=== PATIENT | female | born 1965 | race Caucasian/White ===

== ENCOUNTER 2016-05-29 08:48 | Day surgery (SDC) | payer BC, OTHER ==
[~2016-05-29 08:48] MED LIST: Bupivacaine 0.5% 10 ML SDV INJECT ONE; Lactated Ringers 1,000 ML IV SCH; Lidocaine 1% 30 ML SDV INJECT ONE; Sodium Chloride 0.9% 10 ML Syringe FLUSH PRN; ceFAZolin 1 GM in Premix Bag 1 BAG IV ONE
[2016-05-29] MEDS ORDERED: Lidocaine 1% 30 ML SDV ONE (10:58)
[2016-05-29] MEDS ORDERED: Bupivacaine 0.5% 10 ML SDV ONE (10:59)
[2016-05-29] MEDS ORDERED: Midazolam 1 MG/ML 2 ML SDV ONE (11:07)
[2016-05-29] MEDS ORDERED: fentaNYL 100 MCG/2 ML SDV ONE (11:08)
[2016-05-29] MEDS ORDERED: Ondansetron 4 MG/2 ML SDV ONE (11:08)
[2016-05-29] MEDS ORDERED: Dexamethasone 4 MG/ML SDV ONE (11:08)
[2016-05-29] MEDS ORDERED: Propofol 200 MG/20 ML SDV ONE (11:08)
[2016-05-29] MEDS ORDERED: Lidocaine 1% 30 ML SDV INJECT ONE ×3 (11:36→13:41)
[2016-05-29] MEDS ORDERED: Bupivacaine 0.5% 10 ML SDV INJECT ONE ×3 (11:36→13:41)
[2016-05-29] MEDS ORDERED: HYDROmorphone 1 MG/ML Syringe ONE ×3 (13:20→13:23)
[2016-05-29] MEDS ORDERED: Acetaminophen/oxyCODONE 325-5 MG Tab PO PRN (15:06)
--- NOTE | 2016-05-29 15:11 | PCM.OPNOTE ---
- General Post-Op/Procedure Note Date of Surgery/Procedure: 05/29/16 Operative Procedure(s): Right lateral ankle stabilization procedure/brostrom- hdz, right 2nd and 3rd digit hammertoe correction/proximal interaphalangeal joint arthrodesis with extensor tendon lengthening. Pre Op Diagnosis: Right ankle instabiltiy, hammertoes 2 and 3 Post-Op Diagnosis: dexter Anesthesia Technique: General LMA Primary Surgeon: Elicia Scott Anesthesia Provider: Jorge Alberto Lopez EBL in mLs: 5 Complications: none Condition: Good Free Text/Narrative:: Intake & Output 05/29/16 05/29/16 05/29/16 06:59 14:59 22:59 Intake Total 50 Balance 50 Pt tolerated procedure well and was transported to pacu with vss and vascular status intact to E. TT 116 mins. Danis bone anchor to distal fibula, 0.062 k wires to toes 2 and 3. Well padded L&U splint with foot in slight eversion.
[2016-05-29] MEDS ORDERED: HYDROmorphone 1 MG/ML Syringe IV ONE (15:51)
[2016-05-29] MEDS ORDERED: Ketorolac 30 MG/ML SDV IVPUSH ONE (15:51)
[2016-05-29] MEDS ORDERED: Ondansetron 4 MG/2 ML SDV IV ONE (15:51)
[2016-05-29] MEDS ORDERED: Dexamethasone 4 MG/ML SDV IV ONE (15:51)
[2016-05-29] MEDS ORDERED: Propofol 200 MG/20 ML SDV IV ONE (15:51)
[2016-05-29] MEDS ORDERED: Midazolam 1 MG/ML 2 ML SDV IV ONE (15:51)
[2016-05-29] MEDS ORDERED: fentaNYL 100 MCG/2 ML SDV IV ONE (15:51)
[2016-05-29] MEDS ORDERED: Glycopyrrolate 0.2 MG/ML 2 ML SDV IM ONE (15:51)
[2016-05-29 16:14] VITALS: BP 132/75
--- NOTE | 2016-05-29 22:33 | OR ---
DATE: 05/29/2016 PREOPERATIVE DIAGNOSES: 1. Chronic lateral ankle instability, right ankle. 2. Painful hammertoe deformities, digits 2 and 3. POSTOPERATIVE DIAGNOSES: 1. Chronic lateral ankle instability, right ankle. 2. Painful hammertoe deformities, digits 2 and 3. PROCEDURE PERFORMED: 1. Right lateral ankle stabilization/Brostrom Bhatti procedure with bone anchor. 2. Right foot 2nd and 3rd digit hammertoe correction with proximal interphalangeal joint arthrodesis and extensor tendon lengthening. ANESTHESIA: General LMA with preoperative local block of 10 mL, 1:1 mixture of 1% lidocaine plain and 0.5% Marcaine plain. Tourniquet time 116 minutes pneumatic high ankle tourniquet. ESTIMATED BLOOD LOSS: Minimal. SPECIMEN: None. COMPLICATIONS: None. INDICATIONS: Sandee is a 50-year-old female, who presents with multiple different foot and ankle issues. She has been having pain to the outside of her ankle and along the outside of her foot. She reports that she had a very bad ankle injury many years ago and since that time she has been having troubles with chronic ankle sprains, reports twisting the ankle at least 2 times a month, usually more, which then aggravates the pain on the outside of her foot. She has tried ankle braces, which do help, but they are hard to fit in shoes, also has tried physical therapy many years ago with no relief. Also, reports painful hammertoe of the 2nd and 3rd digits, which started forming after she had fractured that foot and had surgical correction. It is very painful for her by the end of the day to the toes. She does have custom inserts. X-rays of the right foot reveal hammertoe present to the 2nd and 3rd digits, small plantar heel spur. No signs of fracture. The patient voiced good understanding of proposed procedure and possible complications and elects to have surgery at this time. DESCRIPTION OF THE PROCEDURE: The patient was taken to the operating room, lying in the supine position. After adequate anesthesia induction as described above, the right foot and ankle were prepped and draped in the usual sterile fashion. A pneumatic high ankle tourniquet was inflated to 225 mmHg. Attention was then directed to the lateral ankle. The dorsal cutaneous nerve was palpated and marked out. An incision was made at the distal fibula approximately 5 cm in length, covering around the distal fibula toward the distal anterior aspect. Sharp and blunt dissection was performed down to the level of the ankle joint capsule and inferior extensor retinaculum. Care was taken to avoid all neurovascular structures and cauterize all bleeders. A 15 blade was then used to incise the anterolateral ankle capsule and ATFL down to the level of the peroneal tendon sheath. The tendons were visualized and appeared healthy without any tears or defects. Dissection was then made in the layer the extensor retinaculum and the anterior ankle joint capsule. Periosteum was elevated from the distal anterior fibula, and a rongeur was used to create a gutter running transversely along the distal tip of the fibula down to good bleeding bone. The excess overlapping soft tissue at the anterior ankle joint was excised in a lunar fashion. A [employer] bone anchor was then inserted from distal to proximal centered at the distal tip of the fibula. I was able to visualize intra-articularly and to verify that the anchor was not entering the joint. The suture from the bone anchor was then used to suture the ATFL and anterior capsule and secure them down to the fibula with ankle held in an everted position. The suture was then used to suture the extensor retinaculum over the anterior ankle capsule to the fibula for extra stability, and then the remaining suture was used to secure the periosteum to the inferior extensor retinaculum in a [id number] fashion all done with the foot in an everted position. The ankle was then tested and noted to be stable with inversion and talar tilt. Some of the remaining suture was then used to augment the repair with a couple more sutures at the repaired area. The area was then irrigated with copious amounts of sterile saline. Deep closure was completed with 2-0 Vicryl, and skin closure was completed with 4-0 nylon. Attention was then directed to the 2nd and 3rd toes of that same foot where linear incisions were made, centered dorsally over the proximal interphalangeal joint extending down to the metatarsophalangeal joints. Sharp and blunt dissection was performed down to the level of the extensor tendon. A transverse tenotomy capsulotomy of the proximal interphalangeal joint was made on both the 2nd and 3rd digits. The extensor tendon was reflected proximally and the soft tissue removed sharply to expose the head of the proximal phalanx. The sagittal saw was then used to resect the head of the proximal phalanx and shaped this into a cone and a bur was used to remove the cartilage from the base of the intermediate phalanx shaping into a cup. A 0.062 inch K-wire was then inserted from proximal to distal exiting the digit distally, and the digit was then placed in a straight anatomic alignment with the K-wire was then retrograded through the proximal phalanx just into the proximal phalanx. This was done on both the 2nd and 3rd toes, and they are both noted to be in rectus alignment. The digits were noted, however, to still be elevated and the extensor tendon was very tight. A Z- lengthening was done on both the 2nd and 3rd digits at this time. The tendons were repaired with 3-0 Vicryl. The areas were then irrigated with copious amounts of sterile saline. Skin closure was completed with 4-0 nylon. The right foot and ankle were dressed with Xeroform to the incision sites, fluffs, Webril, and a well-padded L and U splint with the ankle in eversion. The patient tolerated the procedure and anesthesia well and left the operating room for recovery with vital signs stable and in good condition with vascular status intact to the right foot as noted by hyperemia to all digits upon deflation of the ankle tourniquet. The tourniquet time was 160 minutes. She was then discharged home when she met hospital discharge requirements. [facility] /[id number]
== END 2016-05-29 16:25 | disposition home or self-care (01) ==
LOC: DL.SDS 08:48
PROVIDERS: ATTEND Podiatrist
DX: M20.41 Other hammer toe(s) (acquired), right foot (principal); M25.371 Other instability, right ankle; D64.9 Anemia, unspecified; E66.9 Obesity, unspecified; Z98.890 Other specified postprocedural states; Z98.84 Bariatric surgery status; Z90.49 Acquired absence of other specified parts of digestive tract
CPT/HCPCS: 27695; 28285; A9270; J0690; J1100; J1170; J1885; J2250; J2405; J2704; J3010; J7120; C1713; J3490

== ENCOUNTER 2017-05-30 15:25 | Emergency (ER) | payer BC ==
[2017-05-30 16:37] VITALS: BP 140/101
--- NOTE | 2017-05-30 18:09 | EDM.PDOC ---
ED HPI GENERAL MEDICAL PROBLEM - General Chief Complaint: Upper Extremity Injury/Pain Stated Complaint: [id number] FELL ON WRIST AND ARM WALKING TO STORE Time Seen by Provider: 05/30/17 18:04 Source of Information: Reports: Patient History Limitations: Reports: No Limitations - History of Present Illness INITIAL COMMENTS - FREE TEXT/NARRATIVE: fell yesterday while stepping over snowbank, c/o pain to left wrist and scrapes to right knee. No loss of consciousness, no other injuries. Hx previous bilateral carpal tunnel surgery and hx bilateral wrist fractures. Left Wrist Pain Score (Numeric/FACES): 5 - Related Data Allergies Allergy/AdvReac Type Severity Reaction Status Date / Time sulfamethoxazole Allergy Unknown HIVES/URTIC Verified 05/29/16 09:42 [From Bactrim] ARIA trimethoprim [From Bactrim] Allergy Unknown HIVES/URTIC Verified 05/29/16 09:42 ARIA Home Meds: Home Meds Calcium Carbonate/Vitamin D3 [Calcium Carbonate/Vitamin D 1250 MG-200 Unit] 1 tab PO BID 03/10/14 [History] Cholecalciferol (Vitamin D3) [Vitamin D3] 4,000 unit PO DAILY 03/10/14 [History] Cyanocobalamin (Vitamin B12) [Vitamin B12] 1,000 mcg IJ ASDIRECTED 03/10/14 [ History] DULoxetine HCl [Cymbalta] 90 mg PO BID 03/10/14 [History] Ferrous Sulfate 325 mg PO DAILY 03/10/14 [History] Fish Oil/Santa Claus-3 Fatty Acids [Fish Oil 1,000 MG] 2 gm PO DAILY 03/10/14 [History ] Gabapentin [Neurontin] 2 tab PO TID 03/10/14 [History] Levothyroxine 25 mcg PO ACBRK 03/10/14 [History] Magnesium Oxide [Magnesium] 500 mg PO DAILY 03/10/14 [History] Multivitamin [Multi Vitamin Daily] 1 tab PO BID 03/10/14 [History] Potassium Chloride In 0.9%NaCl [Potassium Cl-Ns 10 Meq/1,000Ml] 10 meq PO BID [History] QUEtiapine [SEROquel XR] 50 mg PO DAILY 03/10/14 [History] traMADol [Ultram] 100 mg PO DAILY PRN 03/10/14 [History] Metoprolol Succinate 50 mg PO DAILY 05/29/16 [History] Past Medical History HEENT History: Reports: None, Impaired Vision Cardiovascular History: Reports: None, Hypertension Respiratory History: Reports: None Gastrointestinal History: Reports: None Genitourinary History: Reports: None 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: None Musculoskeletal History: Reports: Back Pain, Chronic, Fracture, Other (See Below ) Other Musculoskeletal History: osteopenia Neurological History: Reports: None Psychiatric History: Reports: Anxiety, Depression, Emotional Problems, Panic Attack, Suicide Attempt Other Psychiatric History: recent suicide attempt in Mar Endocrine/Metabolic History: Reports: Hypothyroidism, Obesity/BMI 30+ Hematologic History: Reports: Anemia, Iron Deficiency Immunologic History: Reports: None Oncologic (Cancer) History: Reports: None Dermatologic History: Reports: None - Infectious Disease History Infectious Disease History: Reports: Chicken Pox - Past Surgical History GI Surgical History: Reports: Appendectomy, Bariatric Procedure, Cholecystectomy Female Surgical History: Reports: D&C Other Female Surgeries/Procedures: D&C due to miscarrage Musculoskeletal Surgical History: Reports: Carpal Tunnel, Other (See Below) Other Musculoskeletal Surgeries/Procedures:: right foot, right toes and ankle Social & Family History - Family History Family Medical History: Noncontributory - Tobacco Use Smoking Status *Q: Former Smoker Years of Tobacco use: 20 Packs/Tins Daily: 1 Used Tobacco, but Quit: Yes Month/Year Tobacco Last Used: 2017 Second Hand Smoke Exposure: No - Caffeine Use Caffeine Use: Reports: Energy Drinks, Soda - Alcohol Use Days Per Week of Alcohol Use: 7 Number of Drinks Per Day: 8 Total Drinks Per Week: 56 - Recreational Drug Use Recreational Drug Use: No Drug Use in Last 12 Months: No - Sexual History Sexual History: Reports: Sexually Active - Living Situation & Occupation Living situation: Reports: , with Spouse Occupation: Employed Review of Systems - Review of Systems Review Of Systems: ROS reveals no pertinent complaints other than HPI. ED EXAM, GENERAL - Physical Exam Exam: See Below Exam Limited By: No Limitations General Appearance: Alert, No Apparent Distress Ears: Normal External Exam Nose: Normal Inspection Throat/Mouth: Normal Voice Head: Atraumatic, Normocephalic Neck: Full Range of Motion Respiratory/Chest: No Respiratory Distress, Lungs Clear Cardiovascular: Regular Rate, Rhythm Extremities: Other (slight swelling left wrist guarded ROM) Neurological: Alert, Oriented Psychiatric: Normal Affect Skin Exam: Warm, Dry, Other (small superficial abrasion right knee, no swelling ) Course - Vital Signs Last Recorded V/S: Last Vital Signs Temp 97.6 F 05/30/17 16:36 Pulse 71 05/30/17 16:36 Resp 16 05/30/17 16:36 BP 140/101 H 05/30/17 16:36 Pulse Ox 98 05/30/17 16:36 - Radiology Interpretation Free Text/Narrative:: Left wrist negative for acute fracture - Re-Assessments/Exams Free Text/Narrative Re-Assessment/Exam: 05/30/17 18:13 Wrist brace available at home for use. Departure - Departure Time of Disposition: 18:09 Disposition: Home, Self-Care 01 Condition: Good Clinical Impression: Broken skin Sprain of left wrist Qualifiers: Encounter type: initial encounter Qualified Code(s): S63.502A - Unspecified sprain of left wrist, initial encounter - Discharge Information Instructions: Wrist Sprain, Adult, Abrasion, [id number] Referrals: Paulette Sylvester MD [Primary Care Provider] - Forms: ED Department Discharge Additional Instructions: Wrist brace for comfort tylenol or ibuprofen for discomfort antibiotic ointment to right knee, bandaide dressing to wounds, follow up if redness or drainage
== END 2017-05-30 18:26 | disposition home or self-care (01) ==
LOC: DL.ED 15:25
DX: S63.502A Unspecified sprain of left wrist, initial encounter (principal); S80.211A Abrasion, right knee, initial encounter; I10 Essential (primary) hypertension; E03.9 Hypothyroidism, unspecified; Z79.899 Other long term (current) drug therapy; Z88.2 Allergy status to sulfonamides; Z88.1 Allergy status to other antibiotic agents; Z87.891 Personal history of nicotine dependence; W01.0XXA Fall on same level from slipping, tripping and stumbling without subsequent striking against object, initial encounter
CPT/HCPCS: 73110-LT; 99284

== ENCOUNTER 2017-10-12 17:16 | Emergency (ER) | payer BC ==
[2017-10-12 17:23] VITALS: BP 129/92
[2017-10-12] MEDS ORDERED: diphenhydrAMINE 50 MG/ML SDV IVPUSH ONE (17:26)
[2017-10-12] MEDS ORDERED: methylPREDNISolone Sodium Succinate 125 MG/2 ML SDV IVPUSH ONE (17:26)
[2017-10-12] MEDS ORDERED: Sodium Chloride 0.9% 10 ML Syringe FLUSH PRN (17:26)
[2017-10-12] MEDS ORDERED: Famotidine 20 MG/2 ML SDV IVPUSH ONE (17:27)
--- NOTE | 2017-10-12 18:03 | EDM.PDOC ---
Scribed by Bliare Weaver 10/12/17 2085 for Jeff Vernon MD ED HPI GENERAL MEDICAL PROBLEM - General Chief Complaint: Allergic Reaction Stated Complaint: HIVES [id number] Time Seen by Provider: 10/12/17 17:24 Source of Information: Reports: Patient, RN, RN Notes Reviewed History Limitations: Reports: No Limitations - History of Present Illness INITIAL COMMENTS - FREE TEXT/NARRATIVE: Patient presents to ER stating that she was walking home from work at [employer] and suddenly had itching skin and noticed that she had developed generalized hives. She has no idea what she could be reacting. Only preceding symptoms that she can think of is that she has had a mild sore throat for 3 days. Onset: Today Location: Reports: Generalized Quality: Reports: Ache Severity: Moderate Improves with: Reports: None Worsens with: Reports: None Associated Symptoms: Reports: No Other Symptoms - Related Data Allergies Allergy/AdvReac Type Severity Reaction Status Date / Time sulfamethoxazole Allergy Unknown HIVES/URTIC Verified 10/12/17 17:19 [From Bactrim] ARIA trimethoprim [From Bactrim] Allergy Unknown HIVES/URTIC Verified 10/12/17 17:19 ARIA Home Meds: Home Meds Calcium Carbonate/Vitamin D3 [Calcium Carbonate/Vitamin D 1250 MG-200 Unit] 1 tab PO BID 03/10/14 [History] Cholecalciferol (Vitamin D3) [Vitamin D3] 4,000 unit PO DAILY 03/10/14 [History] Cyanocobalamin (Vitamin B12) [Vitamin B12] 1,000 mcg IJ ASDIRECTED 03/10/14 [ History] DULoxetine HCl [Cymbalta] 90 mg PO BID 03/10/14 [History] Ferrous Sulfate 325 mg PO DAILY 03/10/14 [History] Fish Oil/Trego-3 Fatty Acids [Fish Oil 1,000 MG] 2 gm PO DAILY 03/10/14 [History ] Gabapentin [Neurontin] 2 tab PO TID 03/10/14 [History] Levothyroxine 25 mcg PO ACBRK 03/10/14 [History] Magnesium Oxide [Magnesium] 500 mg PO DAILY 03/10/14 [History] Multivitamin [Multi Vitamin Daily] 1 tab PO BID 03/10/14 [History] Potassium Chloride In 0.9%NaCl [Potassium Cl-Ns 10 Meq/1,000Ml] 10 meq PO BID [History] QUEtiapine [SEROquel XR] 50 mg PO DAILY 03/10/14 [History] Metoprolol Succinate 50 mg PO DAILY 05/29/16 [History] Past Medical History HEENT History: Reports: None, Impaired Vision Cardiovascular History: Reports: None, Hypertension Respiratory History: Reports: None Gastrointestinal History: Reports: None Genitourinary History: Reports: None SLOT SHIFT MANAGER History: Reports: None Musculoskeletal History: Reports: Back Pain, Chronic, Fracture, Other (See Below ) Other Musculoskeletal History: osteopenia Neurological History: Reports: None Psychiatric History: Reports: Anxiety, Depression, Emotional Problems, Panic Attack, Suicide Attempt Other Psychiatric History: recent suicide attempt in Mar Endocrine/Metabolic History: Reports: Hypothyroidism, Obesity/BMI 30+ Hematologic History: Reports: Anemia, Iron Deficiency Immunologic History: Reports: None Oncologic (Cancer) History: Reports: None Dermatologic History: Reports: None - Infectious Disease History Infectious Disease History: Reports: Chicken Pox - Past Surgical History GI Surgical History: Reports: Appendectomy, Bariatric Procedure, Cholecystectomy Female Surgical History: Reports: D&C Other Female Surgeries/Procedures: D&C due to miscarrage Musculoskeletal Surgical History: Reports: Carpal Tunnel, Other (See Below) Other Musculoskeletal Surgeries/Procedures:: right foot, right toes and ankle Social & Family History - Family History Family Medical History: Noncontributory - Caffeine Use Caffeine Use: Reports: Energy Drinks, Soda - Sexual History Sexual History: Reports: Sexually Active - Living Situation & Occupation Living situation: Reports: , with Spouse Occupation: Employed ED ROS ALLERGIC REACTION - Review of Systems Review Of Systems: ROS reveals no pertinent complaints other than HPI. ED EXAM GENERAL NO PERIP PULSE - Physical Exam Exam: See Below Exam Limited By: No Limitations General Appearance: Alert, No Apparent Distress, Obese Eye Exam: Bilateral Eye: Normal Inspection Ears: Normal External Exam Nose: Normal Inspection, Normal Mucosa, No Blood Throat/Mouth: Normal Lips, Normal Gums, Normal Voice, No Airway Compromise, Other (mild pharyngeal erythema. No tonsillarswelling or exudates.) Head: Atraumatic, Normocephalic Neck: Normal Inspection, Supple, Non-Tender, Full Range of Motion. No: Lymphadenopathy (L), Lymphadenopathy (R) Respiratory/Chest: No Respiratory Distress, Lungs Clear, Normal Breath Sounds, No Accessory Muscle Use, Chest Non-Tender Cardiovascular: Regular Rate, Rhythm GI/Abdominal: Normal Bowel Sounds, Soft, Non-Tender, No Distention, Other ( benign obese abdomen) (Female) Exam: Deferred Rectal (Female) Exam: Deferred Back Exam: Normal Inspection, Full Range of Motion, NT Extremities: Normal Inspection, Normal Range of Motion, Non-Tender, Normal Capillary Refill, No Pedal Edema Neurological: Alert, Oriented, CN II-XII Intact, Normal Cognition, Normal Gait, No Motor/Sensory Deficits Psychiatric: Normal Mood Skin Exam: Warm, Dry, Intact, Rash (generalized urticarial wheel and flare rash. ) Course - Vital Signs Last Recorded V/S: Last Vital Signs Temp 36.8 C 10/12/17 17:22 Pulse 88 10/12/17 17:22 Resp 20 10/12/17 17:22 BP 129/92 H 10/12/17 17:22 Pulse Ox 96 10/12/17 17:22 - Orders/Labs/Meds Orders: Active Orders 24 hr Category Date Time Status Peripheral IV Care [RC] . DIRECTED Care 10/12/17 17:26 Active CULTURE STREP A CONFIRMATION [] Stat Lab 10/12/17 17:27 Results STREP SCRN A RAPID W CULT CONF [] Stat Lab 10/12/17 17:27 Results Sodium Chloride 0.9% [Saline Flush] Med 10/12/17 17:26 Active 10 ml FLUSH ASDIRECTED PRN Peripheral IV Insertion Adult [OM.PC] Stat Oth 10/12/17 17:26 Ordered Medication Orders Sodium Chloride (Saline Flush) 10 ml FLUSH ASDIRECTED PRN PRN Reason: Keep Vein Open Last Admin: 10/12/17 17:35 Dose: 10 ml Labs: Rapid strep: Negative. Meds: Medications Generic Name Dose Route Start Last Admin Trade Name Freq PRN Reason Stop Dose Admin Sodium Chloride 10 ml 10/12/17 17:26 10/12/17 17:35 Saline Flush FLUSH 10 ml ASDIRECTED PRN Administration Keep Vein Open Discontinued Medications Generic Name Dose Route Start Last Admin Trade Name Freq PRN Reason Stop Dose Admin Diphenhydramine HCl 50 mg 10/12/17 17:26 10/12/17 17:34 Benadryl IVPUSH 10/12/17 17:27 50 mg ONETIME ONE Administration Famotidine 20 mg 10/12/17 17:27 10/12/17 17:35 Pepcid IVPUSH 10/12/17 17:28 20 mg ONETIME ONE Administration Methylprednisolone Sodium Succinate 125 mg 10/12/17 17:26 10/12/17 17:35 Solu-Medrol IVPUSH 10/12/17 17:27 125 mg ONETIME ONE Administration - Re-Assessments/Exams Free Text/Narrative Re-Assessment/Exam: 10/12/17 18:01 Urticaria resolved following tx in ER. Departure - Departure Time of Disposition: 18:01 Disposition: Home, Self-Care 01 Condition: Good Clinical Impression: Allergic reaction, urticaria - Discharge Information Instructions: Hives, [id number] Forms: ED Department Discharge Additional Instructions: Rx: Prednisone 20mg Rx: Zyrtec 10mg Follow up in clinic if not completely improved in 24 hours. Return to ER if worse at any time. - My Orders Last 24 Hours: My Active Orders 10/12/17 17:26 Peripheral IV Care [RC] . DIRECTED Sodium Chloride 0.9% [Saline Flush] 10 ml FLUSH ASDIRECTED PRN Peripheral IV Insertion Adult [OM.PC] Stat 10/12/17 17:27 CULTURE STREP A CONFIRMATION [RM] Stat STREP SCRN A RAPID W CULT CONF [RM] Stat - Assessment/Plan Last 24 Hours: My Active Orders 10/12/17 17:26 Peripheral IV Care [RC] . DIRECTED Sodium Chloride 0.9% [Saline Flush] 10 ml FLUSH ASDIRECTED PRN Peripheral IV Insertion Adult [OM.PC] Stat 10/12/17 17:27 CULTURE STREP A CONFIRMATION [RM] Stat STREP SCRN A RAPID W CULT CONF [RM] Stat I have read and agree with the documentation that has been completed regarding this visit. By signing this record, I attest that the documentation was completed in my physical presence and is an accurate record of the encounter.
== END 2017-10-12 18:16 | disposition home or self-care (01) ==
LOC: DL.ED 17:16
DX: L50.0 Allergic urticaria (principal); I10 Essential (primary) hypertension; Z79.899 Other long term (current) drug therapy; E66.9 Obesity, unspecified; E03.9 Hypothyroidism, unspecified; Z88.2 Allergy status to sulfonamides
CPT/HCPCS: 87081; 87430; 96374; 96375; 99283; J1200; J2930; J3490; J7050

== ENCOUNTER 2018-11-10 21:59 | Emergency (ER) | payer BC ==
[2018-11-10 22:08] VITALS: BP 92/58; PULSE 97
[2018-11-10 22:49] LABS: ACETAMINOPHEN < 10.0 ug/mL
[2018-11-10 23:01] LABS: ANION GAP 12.8; CHLORIDE,CL 108 mmol/L (101-111); SODIUM,NA 137 mmol/L (135-145)
[2018-11-10] MEDS ORDERED: Potassium Chloride 10 MEQ in Premix Bag 1 BAG IV ONE (23:03)
[2018-11-10] MEDS ORDERED: 50% Dextrose in Water 50 ML Syringe IVPUSH ONE (23:03)
[2018-11-10] MEDS ORDERED: Sodium Chloride 0.9% 1,000 ML IV ONE (23:04)
--- NOTE | 2018-11-10 23:13 | EDM.PDOC ---
ED HPI GENERAL MEDICAL PROBLEM - General Chief Complaint: Drug or Alcohol Abuse Stated Complaint: AMBULANCE Time Seen by Provider: 11/10/18 22:40 Source of Information: Reports: Patient History Limitations: Reports: No Limitations - History of Present Illness INITIAL COMMENTS - FREE TEXT/NARRATIVE: This 52 yo female patient was brought to the ED by [facility] due to altered mentation. The patient reports she took all of her medications as prescribed and had 2 drinks this evening. After that, the patient started to have altered mentation. The patient reports she does not drink on a regular basis. The patient reports she is on a number of medications for depression, anxiety and generalized pain. Onset: Today Duration: Constant Location: Reports: Generalized Quality: Reports: Other Severity: Moderate Improves with: Reports: None Worsens with: Reports: None Context: Reports: Other Associated Symptoms: Reports: No Other Symptoms - Related Data Allergies Allergy/AdvReac Type Severity Reaction Status Date / Time sulfamethoxazole Allergy Unknown HIVES/URTIC Verified 11/10/18 22:46 [From Bactrim] ARIA trimethoprim [From Bactrim] Allergy Unknown HIVES/URTIC Verified 11/10/18 22:46 ARIA Home Meds: Home Meds Calcium Carbonate/Vitamin D3 [Calcium Carbonate/Vitamin D 1250 MG-200 Unit] 1 tab PO BID 03/10/14 [History] Cholecalciferol (Vitamin D3) [Vitamin D3] 4,000 unit PO DAILY 03/10/14 [History] Cyanocobalamin (Vitamin B12) [Vitamin B12] 1,000 mcg IJ ASDIRECTED 03/10/14 [ History] DULoxetine HCl [Cymbalta] 20 mg PO DAILY 03/10/14 [History] Ferrous Sulfate 325 mg PO DAILY 03/10/14 [History] Fish Oil/[place]-3 Fatty Acids [Fish Oil 1,000 MG] 2 gm PO DAILY 03/10/14 [History ] Gabapentin [Neurontin] 2 tab PO TID 03/10/14 [History] Levothyroxine 25 mcg PO ACBRK 03/10/14 [History] Magnesium Oxide [Magnesium] 500 mg PO DAILY 03/10/14 [History] Multivitamin [Multi Vitamin Daily] 1 tab PO BID 03/10/14 [History] Potassium Chloride In 0.9%NaCl [Potassium Cl-Ns 10 Meq/1,000Ml] 10 meq PO BID [History] QUEtiapine [SEROquel XR] 50 mg PO DAILY 03/10/14 [History] Metoprolol Succinate 50 mg PO DAILY 05/29/16 [History] Pregabalin 150 mg PO ASDIRECTED 11/10/18 [History] oxyCODONE 5 mg PO QID PRN 11/10/18 [History] Past Medical History HEENT History: Reports: None, Impaired Vision Cardiovascular History: Reports: None, Hypertension Respiratory History: Reports: None Gastrointestinal History: Reports: None Genitourinary History: Reports: None 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 Musculoskeletal History: Reports: Back Pain, Chronic, Fracture, Other (See Below ) Other Musculoskeletal History: osteopenia Neurological History: Reports: None Psychiatric History: Reports: Anxiety, Depression, Emotional Problems, Panic Attack, Suicide Attempt Other Psychiatric History: recent suicide attempt in Mar Endocrine/Metabolic History: Reports: Hypothyroidism, Obesity/BMI 30+ Hematologic History: Reports: Anemia, Iron Deficiency Immunologic History: Reports: None Oncologic (Cancer) History: Reports: None Dermatologic History: Reports: None - Infectious Disease History Infectious Disease History: Reports: Chicken Pox - Past Surgical History GI Surgical History: Reports: Appendectomy, Bariatric Procedure, Cholecystectomy Female Surgical History: Reports: D&C Other Female Surgeries/Procedures: D&C due to miscarrage Musculoskeletal Surgical History: Reports: Carpal Tunnel, Other (See Below) Other Musculoskeletal Surgeries/Procedures:: right foot, right toes and ankle Social & Family History - Family History Family Medical History: Noncontributory - Tobacco Use Smoking Status *Q: Unknown Ever Smoked - Caffeine Use Caffeine Use: Reports: None - Alcohol Use Days Per Week of Alcohol Use: 1 Number of Drinks Per Day: 6 Total Drinks Per Week: 6 Date of Last Drink: 11/10/18 Time of Last Drink: 21:30 - Recreational Drug Use Recreational Drug Use: No - Sexual History Sexual History: Reports: Sexually Active - Living Situation & Occupation Living situation: Reports: , with Spouse Occupation: Employed ED ROS GENERAL - Review of Systems Review Of Systems: ROS reveals no pertinent complaints other than HPI. - Physical Exam Exam: See Below Exam Limited By: No Limitations General Appearance: Alert, WD/WN, Moderate Distress Eye Exam: Bilateral Eye: EOMI, Normal Inspection, PERRL Ears: Normal External Exam, Normal Canal, Hearing Grossly Normal, Normal TMs Nose: Normal Inspection, Normal Mucosa, No Blood Throat/Mouth: Normal Inspection, Normal Lips, Normal Teeth, Normal Gums, Normal Oropharynx, Normal Voice, No Airway Compromise Head Exam: Atraumatic, Normocephalic Neck: Normal Inspection, Supple, Non-Tender, Full Range of Motion Respiratory/Chest: No Respiratory Distress, Lungs Clear, Normal Breath Sounds, No Accessory Muscle Use, Chest Non-Tender Cardiovascular: Normal Peripheral Pulses, Regular Rate, Rhythm, No Edema, No Gallop, No JVD, No Murmur, No Rub GI/Abdominal: Normal Bowel Sounds, Soft, Non-Tender, No Organomegaly, No Distention, No Abnormal Bruit, No Mass (Female) Exam: Deferred Rectal (Female) Exam: Deferred Neuro Exam (Abbreviated): Alert, Oriented, Slow to Respond Back Exam: Normal Inspection, Full Range of Motion, NT Extremities: Normal Inspection, Normal Range of Motion, Non-Tender, No Pedal Edema, Normal Capillary Refill Psychiatric: Normal Affect, Normal Mood Skin Exam: Warm, Dry, Intact, Normal Color, No Rash Course - Vital Signs Last Recorded V/S: Last Vital Signs Temp 36.9 C 11/10/18 22:03 Pulse 97 11/10/18 22:03 Resp 16 11/10/18 22:03 BP 92/58 L 11/10/18 22:03 Pulse Ox 96 11/10/18 22:03 - Orders/Labs/Meds Orders: Active Orders 24 hr Category Date Time Status DRUG SCREEN URINE BIORAD [URCHEM] Stat Lab 11/10/18 22:14 Ordered UA RFX ANA AND CULT IF INDIC [URIN] Urgent Lab 11/10/18 22:14 Ordered Potassium Chloride [KCl 10 MEQ in Water 100 ML] 10 meq Med 11/10/18 23:03 Active Premix Bag 1 bag IV ONETIME Potassium Chloride [Klor-Con 10] Med 11/10/18 23:57 Once 40 meq PO ONETIME ONE Sodium Chloride 0.9% [Normal Saline] 1,000 ml Med 11/10/18 23:04 Active IV .BOLUS Medication Orders Potassium Chloride 10 meq/ (Premix) 100 mls @ 100 mls/hr IV ONETIME ONE Stop: 11/11/18 00:02 Last Admin: 11/10/18 23:10 Dose: 100 mls/hr Sodium Chloride (Normal Saline) 1,000 mls @ 300 mls/hr IV .BOLUS ONE Stop: 11/11/18 02:23 Last Admin: 11/10/18 23:09 Dose: 300 mls/hr Potassium Chloride (Klor-Con 10) 40 meq PO ONETIME ONE Stop: 11/10/18 23:58 Labs: Laboratory Tests 11/10/18 11/10/18 11/10/18 Range/Units 22:24 22:24 22:24 WBC 5.9 (5.0-10.0) 10^3/uL RBC 3.60 L (4.2-5.4) 10^6/uL Hgb 9.2 L D (12.0-16.0) g/dL Hct 29.8 L (37.0-47.0) % MCV 82.8 D (80-100) fL MCH 25.6 L (27.0-34.0) pg MCHC 30.9 L (33.0-35.0) g/dL Plt Count 259 (150-450) 10^3/uL Neut % (Auto) 39.7 L (42.2-75.2) % Lymph % (Auto) 45.9 (20.5-50.1) % [place] % (Auto) 12.7 H (2-8) % Eos % (Auto) 1.5 (1.0-3.0) % Baso % (Auto) 0.2 (0.0-1.0) % Sodium 137 (135-145) mmol/L Potassium 2.8 L (3.6-5.0) mmol/L Chloride 108 (101-111) mmol/L Carbon Dioxide 19.0 L (21.0-31.0) mmol/L Anion Gap 12.8 BUN 8 (7-18) mg/dL Creatinine 0.6 (0.6-1.3) mg/dL Est Cr Clr Drug Dosing 100.94 mL/min Estimated GFR (MDRD) > 60 BUN/Creatinine Ratio 13.33 Glucose 39 L* (74-105) mg/dL POC Glucose (70-105) mg/dl Calcium 8.2 L (8.4-10.2) mg/dl Total Bilirubin 0.3 (0.2-1.0) mg/dL AST 30 (10-42) IU/L ALT 15 (10-60) IU/L Alkaline Phosphatase 92 (42-121) IU/L Total Protein 6.4 L (6.7-8.2) g/dl Albumin 3.4 (3.2-5.5) g/dl Globulin 3.0 Albumin/Globulin Ratio 1.13 Salicylates < 4.0 mg/dL Acetaminophen < 10.0 ug/mL Ethyl Alcohol 246 mg/dL 11/10/18 Range/Units 23:34 WBC (5.0-10.0) 10^3/uL RBC (4.2-5.4) 10^6/uL Hgb (12.0-16.0) g/dL Hct (37.0-47.0) % MCV (80-100) fL MCH (27.0-34.0) pg MCHC (33.0-35.0) g/dL Plt Count (150-450) 10^3/uL Neut % (Auto) (42.2-75.2) % Lymph % (Auto) (20.5-50.1) % Fountain % (Auto) (2-8) % Eos % (Auto) (1.0-3.0) % Baso % (Auto) (0.0-1.0) % Sodium (135-145) mmol/L Potassium (3.6-5.0) mmol/L Chloride (101-111) mmol/L Carbon Dioxide (21.0-31.0) mmol/L Anion Gap BUN (7-18) mg/dL Creatinine (0.6-1.3) mg/dL Est Cr Clr Drug Dosing mL/min Estimated GFR (MDRD) BUN/Creatinine Ratio Glucose (74-105) mg/dL POC Glucose 121 H (70-105) mg/dl Calcium (8.4-10.2) mg/dl Total Bilirubin (0.2-1.0) mg/dL AST (10-42) IU/L ALT (10-60) IU/L Alkaline Phosphatase (42-121) IU/L Total Protein (6.7-8.2) g/dl Albumin (3.2-5.5) g/dl Globulin Albumin/Globulin Ratio Salicylates mg/dL Acetaminophen ug/mL Ethyl Alcohol mg/dL Meds: Medications Generic Name Dose Route Start Last Admin Trade Name Freq PRN Reason Stop Dose Admin Potassium Chloride 10 meq/ 100 mls @ 100 mls/hr 11/10/18 23:03 11/10/18 23:10 Premix IV 11/11/18 00:02 100 mls/hr ONETIME ONE Administration Sodium Chloride 1,000 mls @ 300 mls/hr 11/10/18 23:04 11/10/18 23:09 Normal Saline IV 11/11/18 02:23 300 mls/hr .BOLUS ONE Administration Potassium Chloride 40 meq 11/10/18 23:57 Klor-Con 10 PO 11/10/18 23:58 ONETIME ONE Discontinued Medications Generic Name Dose Route Start Last Admin Trade Name Della PRN Reason Stop Dose Admin Dextrose/Water 50 ml 11/10/18 23:03 11/10/18 23:07 Dextrose 50% In Water IVPUSH 11/10/18 23:04 50 ml ONETIME ONE Administration Departure - Departure Time of Disposition: 23:57 Disposition: Home, Self-Care 01 Condition: Fair Clinical Impression: Hypoglycemia, Hypokalemia - Discharge Information *PRESCRIPTION DRUG MONITORING PROGRAM REVIEWED*: Not Applicable *COPY OF PRESCRIPTION DRUG MONITORING REPORT IN PATIENT MELIA: Not Applicable Instructions: Preventing Hypoglycemia, Hypoglycemia, [id number] Forms: ED Department Discharge Care Plan Goals: The patient was advised of the examination and lab results during the visit. The patient was given IV dextrose, IV potassium and an oral dose of potassium while in the ED. The patient was encouraged to get something to eat when she gets home. If the patient has any additional symptoms or concerns, the patient should either return to the emergency department or visit her primary care facility. - My Orders Last 24 Hours: My Active Orders 11/10/18 22:14 DRUG SCREEN URINE BIORAD [URCHEM] Stat UA RFX ANA AND CULT IF INDIC [URIN] Urgent 11/10/18 23:03 Potassium Chloride [KCl 10 MEQ in Water 100 ML] 10 meq Premix Bag 1 bag IV ONETIME 11/10/18 23:04 Sodium Chloride 0.9% [Normal Saline] 1,000 ml IV .BOLUS 11/10/18 23:57 Potassium Chloride [Klor-Con 10] 40 meq PO ONETIME ONE - Assessment/Plan Last 24 Hours: My Active Orders 11/10/18 22:14 DRUG SCREEN URINE BIORAD [URCHEM] Stat UA RFX ANA AND CULT IF INDIC [URIN] Urgent 11/10/18 23:03 Potassium Chloride [KCl 10 MEQ in Water 100 ML] 10 meq Premix Bag 1 bag IV ONETIME 11/10/18 23:04 Sodium Chloride 0.9% [Normal Saline] 1,000 ml IV .BOLUS 11/10/18 23:57 Potassium Chloride [Klor-Con 10] 40 meq PO ONETIME ONE
[2018-11-10] MEDS ORDERED: Potassium Chloride 10 MEQ Tab.ER PO ONE (23:57)
[2018-11-11] MEDS ORDERED: Potassium Chloride 10 MEQ Tab.ER ONE (00:13)
== END 2018-11-11 00:45 | disposition home or self-care (01) ==
LOC: DL.ED 21:59
DX: E87.6 Hypokalemia (principal); E16.2 Hypoglycemia, unspecified; I10 Essential (primary) hypertension; F41.0 Panic disorder [episodic paroxysmal anxiety]; F32.9 Major depressive disorder, single episode, unspecified; E03.9 Hypothyroidism, unspecified; D64.9 Anemia, unspecified; E66.9 Obesity, unspecified; Z68.38 Body mass index [BMI] 38.0-38.9, adult; Z88.2 Allergy status to sulfonamides; Z88.1 Allergy status to other antibiotic agents; Z79.899 Other long term (current) drug therapy
CPT/HCPCS: 36415; 80053; 80320; 80329; 82962; 85025; 96365; 96375; 99284; A9270; J3480; J7030; G0480; J7060

== ENCOUNTER 2019-02-24 12:15 | Emergency (ER) | payer BC ==
[2019-02-24] MEDS ORDERED: Propofol 200 MG/20 ML SDV IV ONE (12:16)
--- NOTE | 2019-02-24 12:17 | EDM.PDOC ---
ED HPI GENERAL MEDICAL PROBLEM - General Stated Complaint: ANKLE PAIN Time Seen by Provider: 02/24/19 12:05 Source of Information: Reports: Patient History Limitations: Reports: No Limitations - History of Present Illness INITIAL COMMENTS - FREE TEXT/NARRATIVE: This 53 yo female patient was brought to the ED by [facility] due to right ankle pain/ deformity. The patient reports she was in her home reaching for a glass of water when her ankle "went out". The patient reports increased pain with any movement. The patient was given Fentanyl (50 mcg) IV by EMS. Onset: Today Duration: Minutes: Location: Reports: Lower Extremity, Right Quality: Reports: Ache, Sharp, Stabbing Severity: Severe Improves with: Reports: Rest Worsens with: Reports: Movement Context: Reports: Other Associated Symptoms: Reports: No Other Symptoms - Related Data Allergies Allergy/AdvReac Type Severity Reaction Status Date / Time sulfamethoxazole Allergy Unknown HIVES/URTIC Verified 02/24/19 12:03 [From Bactrim] ARIA trimethoprim [From Bactrim] Allergy Unknown HIVES/URTIC Verified 02/24/19 12:03 ARIA Home Meds: Home Meds Calcium Carbonate/Vitamin D3 [Calcium Carbonate/Vitamin D 1250 MG-200 Unit] 1 tab PO BID 03/10/14 [History] Cholecalciferol (Vitamin D3) [Vitamin D3] 4,000 unit PO DAILY 03/10/14 [History] Cyanocobalamin (Vitamin B12) [Vitamin B12] 1,000 mcg IJ ASDIRECTED 03/10/14 [ History] DULoxetine HCl [Cymbalta] 20 mg PO DAILY 03/10/14 [History] Ferrous Sulfate 325 mg PO DAILY 03/10/14 [History] Fish Oil/[place]-3 Fatty Acids [Fish Oil 1,000 MG] 2 gm PO DAILY 03/10/14 [History ] Gabapentin [Neurontin] 2 tab PO TID 03/10/14 [History] Levothyroxine 25 mcg PO ACBRK 03/10/14 [History] Magnesium Oxide [Magnesium] 500 mg PO DAILY 03/10/14 [History] Multivitamin [Multi Vitamin Daily] 1 tab PO BID 03/10/14 [History] Potassium Chloride In 0.9%NaCl [Potassium Cl-Ns 10 Meq/1,000Ml] 10 meq PO BID [History] QUEtiapine [SEROquel XR] 50 mg PO DAILY 03/10/14 [History] Metoprolol Succinate 50 mg PO DAILY 05/29/16 [History] Pregabalin 150 mg PO ASDIRECTED 11/10/18 [History] oxyCODONE 5 mg PO QID PRN 11/10/18 [History] Past Medical History HEENT History: Reports: None, Impaired Vision Cardiovascular History: Reports: None, Hypertension Respiratory History: Reports: None Gastrointestinal History: Reports: None Genitourinary History: Reports: None 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 Musculoskeletal History: Reports: Back Pain, Chronic, Fracture, Other (See Below ) Other Musculoskeletal History: osteopenia Neurological History: Reports: None Psychiatric History: Reports: Anxiety, Depression, Emotional Problems, Panic Attack, Suicide Attempt Other Psychiatric History: recent suicide attempt in [place] Endocrine/Metabolic History: Reports: Hypothyroidism, Obesity/BMI 30+ Hematologic History: Reports: Anemia, Iron Deficiency Immunologic History: Reports: None Oncologic (Cancer) History: Reports: None Dermatologic History: Reports: None - Infectious Disease History Infectious Disease History: Reports: Chicken Pox - Past Surgical History GI Surgical History: Reports: Appendectomy, Bariatric Procedure, Cholecystectomy Female Surgical History: Reports: D&C Other Female Surgeries/Procedures: D&C due to miscarrage Musculoskeletal Surgical History: Reports: Carpal Tunnel, Other (See Below) Other Musculoskeletal Surgeries/Procedures:: right foot, right toes and ankle Social & Family History - Family History Family Medical History: Noncontributory - Caffeine Use Caffeine Use: Reports: None - Sexual History Sexual History: Reports: Sexually Active - Living Situation & Occupation Living situation: Reports: , with Spouse Occupation: Employed Review of Systems - Review of Systems Review Of Systems: Comprehensive ROS is negative, except as noted in HPI. ED EXAM, GENERAL - Physical Exam Exam: See Below Exam Limited By: No Limitations General Appearance: Alert, WD/WN, Moderate Distress Eye Exam: Bilateral Eye: EOMI, Normal Inspection, PERRL Ears: Normal External Exam, Normal Canal, Hearing Grossly Normal, Normal TMs Nose: Normal Inspection, Normal Mucosa, No Blood Throat/Mouth: Normal Inspection, Normal Lips, Normal Teeth, Normal Gums, Normal Oropharynx, Normal Voice, No Airway Compromise Head: Atraumatic, Normocephalic Neck: Normal Inspection, Supple, Non-Tender, Full Range of Motion Respiratory/Chest: No Respiratory Distress, Lungs Clear, Normal Breath Sounds, No Accessory Muscle Use, Chest Non-Tender Cardiovascular: Normal Peripheral Pulses, Regular Rate, Rhythm, No Edema, No Gallop, No JVD, No Murmur, No Rub GI/Abdominal: Normal Bowel Sounds, Soft, Non-Tender, No Organomegaly, No Distention, No Abnormal Bruit, No Mass (Female) Exam: Deferred Rectal (Female) Exam: Deferred Back Exam: Normal Inspection, Full Range of Motion, NT Extremities: Leg Pain (Right ankle pain with swelling and deformity) Neurological: Alert, Oriented, CN II-XII Intact, Normal Cognition, Normal Gait, Normal Reflexes, No Motor/Sensory Deficits Psychiatric: Normal Affect, Normal Mood Skin Exam: Other (Pressure to right medial distal foot. ) Lymphatic: No Adenopathy ED TRAUMA EXTREMITY PROCEDURES - Joint Reduction Site: Other (Right ankle) Sedation: Conscious Sedation Pre-Procedure NV Status: Normal Post-Procedure NV Status: Normal Technique: Traction/Counter Traction Number of Attempts: 1 Post-Reduction Imaging: Acceptably Reduced, Fracture Seen Course - Vital Signs Last Recorded V/S: Last Vital Signs Temp 37.1 C 02/24/19 12:20 Pulse 74 02/24/19 12:20 Resp 16 02/24/19 12:20 BP 116/73 02/24/19 12:20 Pulse Ox 98 02/24/19 12:20 - Orders/Labs/Meds Orders: Active Orders 24 hr Category Date Time Status Ankle 2V Rt [CR] Urgent Exams 02/24/19 12:00 Taken Ankle 2V Rt [CR] Urgent Exams 02/24/19 12:38 Ordered Foot Comp Min 3V Rt [CR] Urgent Exams 02/24/19 12:00 Ordered Departure - Departure Time of Disposition: 14:15 Disposition: DC/Tfer to Acute Hospital 02 Condition: Poor Clinical Impression: Closed right ankle fracture Qualifiers: Encounter type: initial encounter Qualified Code(s): S82.891A - Other fracture of right lower leg, initial encounter for closed fracture Dislocation of right ankle joint Qualifiers: Encounter type: initial encounter Qualified Code(s): S93.04XA - Dislocation of right ankle joint, initial encounter - Discharge Information *PRESCRIPTION DRUG MONITORING PROGRAM REVIEWED*: Not Applicable *COPY OF PRESCRIPTION DRUG MONITORING REPORT IN PATIENT MELIA: Not Applicable Forms: Interfacility Transfer EMTALA Care Plan Goals: Discussed the patient's history, examination, initial x-ray results and follow- up x-ray results with Dr. Byrd ([facility]). Dr. Byrd accepted the patient for continued evaluation and further management. The patient will be transported by [facility]. Sepsis Event Note - Focused Exam Vital Signs: Vital Signs Temp Pulse Resp BP Pulse Ox 02/24/19 12:20 37.1 C 74 16 116/73 98 Date Exam was Performed: 02/24/19 Time Exam was Performed: 12:54 - My Orders Last 24 Hours: My Active Orders 02/24/19 12:00 Ankle 2V Rt [CR] Urgent Foot Comp Min 3V Rt [CR] Urgent 02/24/19 12:38 Ankle 2V Rt [CR] Urgent - Assessment/Plan Last 24 Hours: My Active Orders 02/24/19 12:00 Ankle 2V Rt [CR] Urgent Foot Comp Min 3V Rt [CR] Urgent 02/24/19 12:38 Ankle 2V Rt [CR] Urgent
[2019-02-24 12:22] VITALS: BP 116/73; PULSE 74
[2019-02-24] MEDS ORDERED: fentaNYL 100 MCG/2 ML SDV IVPUSH ONE (12:57)
--- NOTE | 2019-02-24 13:29 | CR ---
EXAMINATION: Ankle 2V Rt SEX: Female AGE: 53 years CLINICAL HISTORY: 53-year-old female post reduction trimalleolar right ankle fracture. INTERPRETATION: 1. Reasonable realignment of the spiral distal diaphyseal fracture right fibula, medial and posterior malleolar fractures right tibia. 2. Satisfactory anatomically orientation of the distal tibia to the mortise of the talus i.e. SATISFACTORY REDUCTION. 3. Posterior splint.
[2019-02-24] MEDS ORDERED: HYDROmorphone 1 MG/ML Syringe IVPUSH ONE (14:15)
--- NOTE | 2019-02-24 14:18 | CR ---
EXAMINATION: Ankle 5 view Rt SEX: Female AGE: 53 years CLINICAL HISTORY: #2 Post reduction INTERPRETATION: 1. Additional views (x5) confirm trimalleolar fracture and tibiotalar dislocation. 2. Slight improvement (reduction) since earlier acute injury ("fracture/dislocation") films right ankle. 3. Distal tibia displaced medially on the ankle mortise (AP projection). Satisfactory tibiotalar articulation (lateral projection). 4. Reasonable orientation/apposition posterior malleolar fragment. Approximately 1 cm offset spiral distal fibular fragment.
== END 2019-02-24 14:35 ==
LOC: DL.ED 12:15
DX: S82.891A Other fracture of right lower leg, initial encounter for closed fracture (principal); I10 Essential (primary) hypertension; E66.9 Obesity, unspecified; E03.9 Hypothyroidism, unspecified; F41.9 Anxiety disorder, unspecified; F32.9 Major depressive disorder, single episode, unspecified; Z88.1 Allergy status to other antibiotic agents; Z79.899 Other long term (current) drug therapy; Z79.890 Hormone replacement therapy; Z68.35 Body mass index [BMI] 35.0-35.9, adult
CPT/HCPCS: 27818; 73600; 96374; 99152; 99285; J1170; J2704; J3010